=== PATIENT | female | born 1990 | race Caucasian/White ===

== ENCOUNTER → 2016-09-22 | Outpatient (CLI) | payer OTHER ==
[2016-09-22 10:12] LABS: BILIRUBIN,URINE NEGATIVE (NEGATIVE); BLOOD/HEMOGLOBIN,URINE NEGATIVE (NEGATIVE); GLUCOSE, URINE NEGATIVE (NEGATIVE); KETONES,URINE 1+ (NEGATIVE); LEUKOCYTE ESTERASE ,URINE 1+ (NEGATIVE); NITRITES,URINE NEGATIVE (NEGATIVE); PROTEIN,URINE 1+ (NEGATIVE); UROBILINOGEN,URINE 1+ (NORMAL)
[2016-09-22 10:13] LABS: BASOPHILS % (AUTO) 0.2 % (0.2-1.0); EOSINOPHILS # (AUTO) 0.3 x10^3/uL (0.0-0.2); EOSINOPHILS % (AUTO) 1.9 % (0.9-2.9); HEMATOCRIT 33.8 % (36.0-47.0); HEMOGLOBIN 11.8 g/dL (12.0-16.0); LYMPHOCYTES # (AUTO) 2.1 X10^3/uL (1.3-2.9); LYMPHOCYTES % (AUTO) 14.6 % (21.0-51.0); MEAN CORPUSCULAR HEMOGLOBIN 31.7 pg (27.0-34.0); MEAN CORPUSCULAR VOLUME 90.8 fL (80.0-100.0); MEAN PLATELET VOLUME 8.1 fL (7.4-11.0); MONOCYTES # (AUTO) 1.2 x10^3/uL (0.3-0.8); MONOCYTES % (AUTO) 8.3 % (0.0-13.0); NEUTROPHILS # (AUTO) 10.6 x10^3/uL (2.2-4.8); PLATELET COUNT 282 X10^3/uL (150.0-450.0); RED BLOOD COUNT 3.72 X10^6/uL (3.5-5.4); RED CELL DISTRIBUTION WIDTH 13.3 % (11.6-16.5); WHITE BLOOD COUNT 14.2 X10^3/uL (3.6-10.0)
[2016-09-22 10:18] LABS: BLOOD UREA NITROGEN 12 mg/dL (7-18); CALCIUM 8.8 mg/dL (8.5-10.1); CARBON DIOXIDE 23.5 mmol/L (21-32); CHLORIDE 102 mmol/L (98-107); CREATININE 0.38 mg/dL (0.55-1.02); GLUCOSE 93 mg/dL (65-99); SODIUM 136 mmol/L (136-145); eGFR BLACK RACES > 60 (>60); eGFR NON BLACK RACES > 60 (>60)
[2016-09-22 10:30] LABS: APPEARANCE,URINE SLIGHTLY HAZY (CLEAR); COLOR,URINE AMBER (YELLOW); RBC,URINE 0-1 /HPF (NEGATIVE)
[2016-09-22 10:31] LABS: BACTERIA,URINE 1+ /HPF (NEGATIVE); SQUAMOUS EPITHELIAL CELL,UR MANY /HPF (NEGATIVE)
== END ==
LOC: LAB 09:32
PROVIDERS: ATTEND Specialist
DX: Z01.818 Encounter for other preprocedural examination (principal); Z34.83 Encounter for supervision of other normal pregnancy, third trimester
CPT/HCPCS: 36415; 80048; 81001; 85025; 86592; 86850; 86900; 86901

== ENCOUNTER 2016-09-28 06:17 | Inpatient (IN) | payer OTHER ==
[2016-09-28] MEDS ORDERED: D5LR 1000ML W PITOCIN 10 U/L 1,000 ML IV ONE (06:29)
[2016-09-28] MEDS ORDERED: PITOCIN ONE (06:30)
[2016-09-28] MEDS ORDERED: D5 1/2 NS 1000 ML 1,000 ML IV ONE (06:30)
[2016-09-28] MEDS ORDERED: D5 1/2 NS 1000ML W PITOCIN 20 U/L 1,000 ML IV ONE (06:30)
--- NOTE | 2016-09-28 06:55 | DR.OB ---
OB Quick Note - Assessment/Plan Assessment/Plan: L&D 09/28/16 at 6:50am S-No complaint. O-Afebrile,VSS PUQ=353 with good LTV, +accel, no decel. CTX=none CVX=2cm/50%/-1/VTX AROM with clear fluid. IUPC and FSE placed. A-IUP at 39 0/7 weeks for induction P-Begin pitocin induction Anticipate
[2016-09-28] MEDS ORDERED: MORPHINE SULFATE INJ 2 MG IVP PRN (07:06)
[2016-09-28] MEDS ORDERED: PITOCIN 10 UNITS in D5 LR 1000 ML 1,000 ML IV PRN (07:06)
[2016-09-28] MEDS ORDERED: D5 1/2 NS 1000 ML 1,000 ML IV SCH (07:06)
[2016-09-28] MEDS ORDERED: NUBAIN INJ 200 MG VIAL MULTIDOSE IVP PRN (07:06)
[2016-09-28] MEDS ORDERED: PITOCIN IVP ONE (07:06)
[2016-09-28] MEDS ORDERED: REGLAN INJ 10 MG VIAL IVP PRN ×2 (07:06→14:36)
[2016-09-28] MEDS ORDERED: PHENERGAN INJ 25 MG IV PRN ×3 (07:06→14:36)
[2016-09-28] MEDS ORDERED: FENTANYL INJ 100 mcg EPI ONE (07:07)
[2016-09-28] MEDS ORDERED: LR 1000 ML IV 1,000 ML IV ONE ×2 (07:07→09:24)
[2016-09-28] MEDS ORDERED: NAROPIN EPIDURAL 0.2% + FENTANYL 90MCG EPI SCH (08:00)
[2016-09-28] MEDS ORDERED: NAROPIN EPIDURAL 0.2% 60 ML with FENTANYL INJ 100 mcg 90 MCG IVP SCH ×2 (08:00)
[2016-09-28] MEDS ORDERED: FENTANYL INJ 100 mcg ONE (09:24)
[2016-09-28] MEDS ORDERED: NAROPIN EPIDURAL 0.2% + FENTANYL 90MCG 60 ML EPI ONE (09:24)
--- NOTE | 2016-09-28 11:47 | DR.OB ---
OB Quick Note - Assessment/Plan Assessment/Plan: L&D 09/28/16 at 11:45pm Pitocin=10mu/min. S-No complaint. s/p epidural. O-Afebrile,VSS HWN=475 with good LTV, +accel, no decel. CTX=q 1 1/2 to 2 min., strong by palpation CVX=4cm/75%/0/VTX A-IUP at 39 0/7 weeks for induction P-Cont. pitocin induction Anticipate
--- NOTE | 2016-09-28 13:50 | DR.OB ---
OB Quick Note - Assessment/Plan Assessment/Plan: Delivery Note CHIEF SCHOOL FINANCE OFFICER 09/28/16 at 1:45pm Patient complete and pushing. Head delivered over intact perineum. Nuchal cord x 1 reduced. Nose and mouth bulb suctioned. Body delivered over intact perineum. Cord clamped x 2 and cut. Infant handed to attendant. Cord sent for gases. Placenta delivered spontaneously / intact / 3 vessel cord. No CVX / vaginal / perineal tears. Viable female , VTX/OA, wt=6'11" and 8/ 9, stable to NBN. Mother stable to RR. KPC=[id number].
[2016-09-28] MEDS ORDERED: MOTRIN TAB 800 MG PO PRN (13:51)
[2016-09-28] MEDS ORDERED: D5 1/2 NS 1000 ML 1,000 ML with PITOCIN 20 UNITS IV SCH ×2 (14:00)
[2016-09-28] MEDS ORDERED: AMBIEN PO PRN (14:36)
[2016-09-28] MEDS ORDERED: DERMOPLAST SPRAY TOP PRN (14:36)
[2016-09-28] MEDS ORDERED: ADACEL TDaP IM ONE (14:36)
[2016-09-28] MEDS: ZANTAC PO SCH (20:06)
[2016-09-28] MEDS: D5 1/2 NS 1000 ML 1,000 ML with PITOCIN 20 UNITS IV SCH ×2 (21:34)
[2016-09-28] MEDS: MOTRIN TAB 800 MG PO PRN (21:53)
[2016-09-29 05:03] LABS: HEMATOCRIT 33.2 % (36.0-47.0); HEMOGLOBIN 11.5 g/dL (12.0-16.0)
[2016-09-29] MEDS: D5 1/2 NS 1000 ML 1,000 ML with PITOCIN 20 UNITS IV SCH ×4 (06:34→13:14)
[2016-09-29] MEDS: ZANTAC PO SCH (08:31)
[2016-09-29] MEDS ORDERED: PRENATAL PLUS PO SCH (09:00)
[2016-09-29 13:14] VITALS: BP 118/67
[2016-09-29] MEDS: MOTRIN TAB 800 MG PO PRN (16:30)
== END 2016-09-29 16:35 | disposition home or self-care (01) | DRG 775 ==
LOC: LD 06:17 → MED/SURG 14:54
PROVIDERS: ADMIT Specialist; ATTEND Specialist
PROC: 10E0XZZ Delivery of Products of Conception, External Approach (ICD-10-PCS; principal; 2016-09-28)
PROC: 10907ZC Drainage of Amniotic Fluid, Therapeutic from Products of Conception, Via Natural or Artificial Opening (ICD-10-PCS; 2016-09-28)
PROC: 3E033VJ Introduction of Other Hormone into Peripheral Vein, Percutaneous Approach (ICD-10-PCS; 2016-09-28)
PROC: 00HU33Z Insertion of Infusion Device into Spinal Canal, Percutaneous Approach (ICD-10-PCS; 2016-09-28)
PROC: 3E0234Z Introduction of Serum, Toxoid and Vaccine into Muscle, Percutaneous Approach (ICD-10-PCS; 2016-09-28)
DX: O80 Encounter for full-term uncomplicated delivery (principal); Z37.0 Single live birth; Z3A.39 39 weeks gestation of pregnancy; Z23 Encounter for immunization
CPT/HCPCS: 36415; 59409; 85014; 85018; A4216; A4222; S0197; J2590; J3010; J7042; J7120

== ENCOUNTER 2019-03-26 11:24 | Inpatient (IN) ==
[2019-03-26 11:30] VITALS: BMI 29.7
[2019-03-26 11:49] LABS: BILIRUBIN,URINE NEGATIVE (NEGATIVE); BLOOD/HEMOGLOBIN,URINE NEGATIVE (NEGATIVE); GLUCOSE, URINE NEGATIVE (NEGATIVE); KETONES,URINE NEGATIVE (NEGATIVE); LEUKOCYTE ESTERASE ,URINE 1+ (NEGATIVE); NITRITES,URINE NEGATIVE (NEGATIVE); PROTEIN,URINE NEGATIVE (NEGATIVE); UROBILINOGEN,URINE NORMAL (NORMAL)
[2019-03-26 11:58] LABS: APPEARANCE,URINE CLEAR (CLEAR); COLOR,URINE YELLOW (YELLOW)
[2019-03-26 11:59] LABS: BACTERIA,URINE TRACE /HPF (NEGATIVE); MUCUS,URINE FEW /HPF (NEGATIVE); RBC,URINE 0-2 /HPF (0-3); SQUAMOUS EPITHELIAL CELL,UR MODERATE /HPF (NEGATIVE)
[2019-03-26] MEDS ORDERED: D5 1/2 NS 1000 ML 1,000 ML IV ONE (12:12)
[2019-03-26] MEDS ORDERED: NS 100 ML IV 100 ML IV ONE (12:15)
[2019-03-26] MEDS ORDERED: D5LR 1L W PITOCIN 10 UNITS/L 10 UNITS/1,000 ML BAG IV ONE (12:15)
[2019-03-26] MEDS ORDERED: AMPICILLIN VIAL 2 GRAM ONE (12:16)
[2019-03-26] MEDS ORDERED: D5 1/2 NS 1000 ML 0 ML IV ONE (12:16)
[2019-03-26] MEDS ORDERED: PITOCIN ONE (12:44)
[2019-03-26] MEDS ORDERED: NAROPIN EPIDURAL 0.2% + FENTANYL 90MCG 60 ML EPI ONE (12:44)
[2019-03-26] MEDS ORDERED: FENTANYL INJ 100 mcg ONE (12:44)
[2019-03-26] MEDS ORDERED: D5 1/2 NS 1L W PITOCIN 20 UNITS/L 20 UNITS/1,000 ML BAG IV ONE (12:44)
[2019-03-26] MEDS ORDERED: LR 1000 ML IV 1,000 ML IV ONE (12:45)
[2019-03-26] MEDS ORDERED: D5 1/2 NS 1000 ML 1,000 ML IV SCH (13:00)
--- NOTE | 2019-03-26 16:19 | DR.OB ---
OB Quick Note - Assessment/Plan Assessment/Plan: Delivery Note HEALTH SCIENCE INSTRUCTOR 03/26/19 at 4:05pm Patient complete and pushing. Head delivered over intact perineum. No nuchal cord. Nose and mouth bulb suctioned. Body delivered over intact perineum. Cord clamped x 2 and cut. handed to attendant. Cord sent for gases. Placenta delivered spontaneously / intact / 3 vessel cord. No CVX / vaginal / perineal tears. Viable female infant, VTX/OA, wt=6'6" and 9/9, stable to NBN. Mother stable to RR. RCZ=[id number].
[2019-03-26] MEDS ORDERED: PHENERGAN INJ 25 MG IM PRN (16:20)
[2019-03-26] MEDS ORDERED: D5 1/2 NS 1000 ML 1,000 ML with PITOCIN 20 UNITS IV SCH ×2 (17:00)
[2019-03-26] MEDS ORDERED: DERMOPLAST SPRAY TOP PRN (17:05)
[2019-03-26] MEDS ORDERED: AMBIEN PO PRN (17:05)
[2019-03-26] MEDS ORDERED: MILK OF MAGNESIA PO PRN (17:05)
[2019-03-26] MEDS ORDERED: ADACEL or BOOSTRIX TDaP VACCINE IM ONE (17:05)
[2019-03-26] MEDS: MOTRIN TAB 800 MG PO PRN (23:30)
[2019-03-27 05:38] LABS: HEMATOCRIT 34.1 % (36.0-47.0); HEMOGLOBIN 11.9 g/dL (12.0-16.0)
[2019-03-27] MEDS ORDERED: PRENATAL PLUS PO SCH (09:00)
[2019-03-27] MEDS: MOTRIN TAB 800 MG PO PRN (13:14)
[2019-03-27 13:49] VITALS: BP 138/80
[2019-03-27] MEDS ORDERED: AFLURIA II4 or FLUARIX II4 IM ONE (15:35)
== END 2019-03-27 17:40 | disposition home or self-care (01) | DRG 807 ==
LOC: ER 11:24 → LD 12:54 → MED/SURG 17:05 → UNDODISIN 03-27 15:17
PROVIDERS: ADMIT Specialist; ATTEND Specialist
DX: O99.613 Diseases of the digestive system complicating pregnancy, third trimester; Z3A.40 40 weeks gestation of pregnancy; Z01.818 Encounter for other preprocedural examination; B95.1 Streptococcus, group B, as the cause of diseases classified elsewhere; O99.824 Streptococcus B carrier state complicating childbirth; Z37.0 Single live birth
CPT/HCPCS: 36415; 80048; 80307; 81001; 85014; 85018; 85025; 86592; 86850; 86900; 86901; 96365; 99284; A4216; A4222; S0197; G0434; J0290; J2590; J3010; J7050; J7120; S5010

== ENCOUNTER 2021-11-11 06:30 | Inpatient (IN) ==
[2021-11-11] MEDS ORDERED: PITOCIN ONE (06:44)
[2021-11-11] MEDS ORDERED: BETADINE SOLN ONE (06:45)
[2021-11-11] MEDS ORDERED: D5 1/2 NS 1,000 ML 1,000 ML IV ONE (06:45)
[2021-11-11] MEDS ORDERED: D5 1/2 NS 1,000 mL + PITOCIN 20 UNITS/L IV 20 UNITS/1,000 ML BAG IV ONE (06:46)
[2021-11-11] MEDS ORDERED: D5 LR + PITOCIN 10 UNITS/L 10 UNITS/1,000 ML BAG IV ONE (06:46)
[2021-11-11] MEDS ORDERED: PHENERGAN INJ 25 MG IM PRN ×2 (07:16→12:21)
[2021-11-11] MEDS ORDERED: REGLAN INJ 10 MG VIAL IVP PRN (07:16)
[2021-11-11] MEDS ORDERED: D5 LR + PITOCIN 10 UNITS/L 10 UNITS/1,000 ML BAG IV PRN (07:16)
[2021-11-11] MEDS ORDERED: MORPHINE SULFATE INJ 2 MG INJ IVP PRN (07:16)
[2021-11-11] MEDS ORDERED: D5 1/2 NS 1,000 ML 1,000 ML IV SCH (07:16)
[2021-11-11] MEDS ORDERED: PITOCIN IVP ONE (07:16)
[2021-11-11] MEDS ORDERED: NUBAIN INJ 200 MG VIAL MULTIDOSE IVP PRN (07:16)
--- NOTE | 2021-11-11 07:30 | DR.OB ---
OB Quick Note - Assessment/Plan Assessment/Plan: L&D 11/11/21 at 7:05am S-No complaint. O-Afebrile,VSS KSB=661 with good LTV, +accel, no decel. CTX=none CVX=3cm/50%/-1/VTX AROM with clear fluid. IUPC and FSE placed. A-IUP at 39 0/7 weeks for induction P-Begin pitocin induction Anticipate
[2021-11-11] MEDS ORDERED: NUBAIN INJ 10 IVP PRN (08:00)
[2021-11-11] MEDS ORDERED: LR 1,000 ML IV 1,000 ML IV ONE ×2 (09:01→09:03)
[2021-11-11] MEDS ORDERED: FENTANYL VIAL INJ 100 mcg ONE (09:03)
[2021-11-11] MEDS ORDERED: NAROPIN EPIDURAL 0.2% 100 ML ONE (09:03)
[2021-11-11] MEDS ORDERED: MOTRIN TAB 800 MG PO PRN (12:21)
--- NOTE | 2021-11-11 12:21 | DR.OB ---
OB Quick Note - Assessment/Plan Assessment/Plan: Delivery Note MEDICAL OFFICE ADMINISTRATOR 11/11/21 at 12:06pm Patient complete and pushing. Head delivered over intact perineum. Nuchal cord x 1 reduced but loose. Nose and mouth bulb suctioned. Body delivered over intact perineum. Cord clamped x 2 and cut. Infant handed to attendant. Cord sent for gases. Placenta delivered spontaneously / intact / 3 vessel cord. A small (10%) placental abruption noted with some clot. No CVX / vaginal / perineal tears noted. Viable female infant, VTX/OA, wt=5'14" and 8/9, stable to NBN. Mother stable to RR. [id number]=[id number].
[2021-11-11] MEDS: D5 1/2 NS 1,000 ML 1,000 ML with PITOCIN 20 UNITS IV SCH ×4 (12:56→22:23)
[2021-11-11] MEDS ORDERED: MILK OF MAGNESIA PO PRN (13:25)
[2021-11-11] MEDS ORDERED: AMBIEN PO PRN (13:25)
[2021-11-11] MEDS ORDERED: ADACEL or BOOSTRIX TDaP VACCINE IM ONE (13:25)
[2021-11-11] MEDS ORDERED: DERMOPLAST PAIN RELIEF SPRAY TOP PRN (13:25)
[2021-11-12] MEDS: D5 1/2 NS 1,000 ML 1,000 ML with PITOCIN 20 UNITS IV SCH ×2 (06:22)
[2021-11-12] MEDS ORDERED: PRENATAL PLUS PO SCH (09:00)
[2021-11-12 13:31] VITALS: BP 130/87
== END 2021-11-12 13:30 | disposition home or self-care (01) | DRG 807 ==
LOC: LD 06:32 → MED/SURG 15:33
PROVIDERS: ADMIT Specialist; ATTEND Specialist
DX: Z37.0 Single live birth; Z01.812 Encounter for preprocedural laboratory examination; O69.89X0 Labor and delivery complicated by other cord complications, not applicable or unspecified; Z3A.39 39 weeks gestation of pregnancy; Z20.822 Contact with and (suspected) exposure to COVID-19; N87.0 Mild cervical dysplasia; R82.998 Other abnormal findings in urine; Z01.818 Encounter for other preprocedural examination; R79.89 Other specified abnormal findings of blood chemistry; O99.892 Other specified diseases and conditions complicating childbirth

== ENCOUNTER 2022-11-23 06:31 | Inpatient (IN) ==
[2022-11-23] MEDS ORDERED: PITOCIN ONE (06:43)
[2022-11-23] MEDS ORDERED: D5 1/2 NS 1,000 ML 1,000 ML IV ONE (06:44)
[2022-11-23] MEDS ORDERED: BETADINE SOLN ONE (06:44)
[2022-11-23] MEDS ORDERED: D5 LR + PITOCIN 10 UNITS/L 10 UNITS/1,000 ML BAG IV ONE (06:45)
[2022-11-23] MEDS ORDERED: D5 1/2 NS 1,000 mL + PITOCIN 20 UNITS/L IV 20 UNITS/1,000 ML BAG IV ONE (06:46)
--- NOTE | 2022-11-23 07:07 | DR.OB ---
OB Quick Note - Assessment/Plan Assessment/Plan: L&D 11/23/22 at 7:05am S-No complaint. O-Afebrile,VSS QHP=894 with good LTV, +accel, no decel. CTX=none CVX=3cm/50%/-1/VTX AROM with clear fluid. IUPC and FSE placed. A-IUP at 39 3/7 weeks for induction P-Begin pitocin induction Anticipate
[2022-11-23] MEDS ORDERED: PITOCIN IVP ONE (07:51)
[2022-11-23] MEDS ORDERED: STADOL INJ IVP PRN (07:51)
[2022-11-23] MEDS ORDERED: REGLAN INJ 10 MG VIAL IVP PRN (07:51)
[2022-11-23] MEDS ORDERED: D5 LR + PITOCIN 10 UNITS/L 10 UNITS/1,000 ML BAG IV PRN (07:51)
[2022-11-23] MEDS ORDERED: D5 1/2 NS 1,000 ML 1,000 ML IV SCH (07:51)
[2022-11-23] MEDS ORDERED: NUBAIN INJ 20 MG AMP IVP PRN (07:51)
[2022-11-23] MEDS ORDERED: ZOFRAN INJ 4 MG VIAL IVP PRN (07:51)
[2022-11-23] MEDS ORDERED: LR 1,000 ML IV 1,000 ML IV ONE (09:13)
[2022-11-23] MEDS ORDERED: NAROPIN EPIDURAL 0.2% 100 ML ONE (09:21)
[2022-11-23] MEDS ORDERED: FENTANYL VIAL INJ 100 mcg ONE (09:21)
--- NOTE | 2022-11-23 12:04 | DR.OB ---
OB Quick Note - Assessment/Plan Assessment/Plan: L&D 11/23/22 at 11:55am Pitocin=14mu/min. S-No complaint. s/p epidural. O-Afebrile,VSS FUD=[id number] with good LTV, +accel, no decel. CTX=q 1 1/2 to 2 min., about 35-55mmHg CVX=6-7cm/75%/0 A-IUP at 39 3/7 weeks for induction P-Continue pitocin induction Anticipate
--- NOTE | 2022-11-23 13:57 | DR.OB ---
OB Quick Note - Assessment/Plan Assessment/Plan: Delivery Note YEAST CULTURE DEVELOPER 11/23/22 at 13:42 Patient complete and pushing. Head delivered over intact perineum. Nose and mouth bulb suctioned. Nuchal cord x 1 reduced. Body delivered over intact perineum. Cord clamped x 2 and cut. Infant handed to attendant. Cord sent for gases. Placenta delivered spontaneously / intact / 3 vessel cord. No CVX / vaginal / perineal tears noted. Viable female , VTX/OA, deliverd by , wt=6'6" and 8/9, stable to NBN. Mother stable to RR. XGF=[id number].
[2022-11-23] MEDS: D5 1/2 NS 1,000 ML 1,000 ML with PITOCIN 20 UNITS IV SCH ×2 (14:30)
[2022-11-23] MEDS ORDERED: ADACEL or BOOSTRIX TDaP VACCINE IM ONE (14:46)
[2022-11-23] MEDS ORDERED: AMBIEN PO PRN (14:46)
[2022-11-23] MEDS ORDERED: DERMOPLAST PAIN RELIEF SPRAY TOP PRN (14:46)
[2022-11-23] MEDS ORDERED: MILK OF MAGNESIA PO PRN (14:46)
[2022-11-23] MEDS: MOTRIN TAB 800 MG PO PRN (18:09)
[2022-11-24 04:24] LABS: HEMATOCRIT 35.1 % (36.0-47.0)
[2022-11-24] MEDS: D5 1/2 NS 1,000 ML 1,000 ML with PITOCIN 20 UNITS IV SCH ×2 (05:25)
[2022-11-24] MEDS ORDERED: PRENATAL PLUS PO ONE (07:40)
[2022-11-24] MEDS: MOTRIN TAB 800 MG PO PRN (07:56)
[2022-11-24] MEDS: PRENATAL PLUS PO SCH ×2 (07:57→09:05)
[2022-11-24] MEDS ORDERED: DEPO-PROVERA CONTRACEPTIVE INJ IM ONE ×2 (08:57→10:59)
[2022-11-24 09:20] VITALS: BP 127/80; PULSE 82; TEMP 97.3; O2SAT 96
[2022-11-24 15:04] VITALS: RESP 20
== END 2022-11-24 12:00 | disposition home or self-care (01) | DRG 806 ==
LOC: LD 06:31 → MED/SURG 15:11
PROVIDERS: ADMIT Specialist; ATTEND Specialist
DX: F12.90 Cannabis use, unspecified, uncomplicated; O34.40 Maternal care for other abnormalities of cervix, unspecified trimester; Z37.0 Single live birth; O99.323 Drug use complicating pregnancy, third trimester; R79.89 Other specified abnormal findings of blood chemistry; Z3A.39 39 weeks gestation of pregnancy; R73.09 Other abnormal glucose; Z01.812 Encounter for preprocedural laboratory examination; R87.619 Unspecified abnormal cytological findings in specimens from cervix uteri